=== PATIENT | male | born 1975 | race Caucasian/White ===

== ENCOUNTER → 2020-06-15 | Day surgery (SDC) | payer OTHER ==
[~2020-06-15] MED LIST: ONDANSETRON ODT8 MG PO; PERCOCET 5-3251 EACH PO; PRILOSEC20 MG PO
[2020-06-15 08:52] LABS: HCT 45.7 % (42.0-52.0); HGB 16.1 g/dl (13.2-18.0); MCH 31.4 pg (25.0-31.0); MCHC 35.2 g/dL (32.0-36.0); MCV 89.1 fL (78.0-100.0); MPV 9.6 fL (6.0-9.5); RBC 5.13 M/uL (4.70-6.00); RDW 12.2 % (11.5-14.0); WBC 7.1 K/uL (4.0-10.5)
[2020-06-15 09:04] LABS: ALBUMIN 4.1 g/dL (3.4-5.0); BILIRUBIN - TOTAL 0.7 mg/dL (0.2-1.0); BUN/CREAT RATIO (CALC) 11.9 RATIO; CREATININE 1.01 mg/dL (0.67-1.17); POTASSIUM 3.6 mmol/L (3.5-5.1); TOTAL PROTEIN 7.1 g/dL (6.4-8.2)
== END | disposition home or self-care (01) ==
LOC: FAS 08:20
PROVIDERS: Surgery
DX: K21.9 Gastro-esophageal reflux disease without esophagitis (principal); K29.60 Other gastritis without bleeding; K92.1 Melena; M19.90 Unspecified osteoarthritis, unspecified site; G47.30 Sleep apnea, unspecified; F17.210 Nicotine dependence, cigarettes, uncomplicated; Z20.822 Contact with and (suspected) exposure to COVID-19; Z88.6 Allergy status to analgesic agent; Z88.8 Allergy status to other drugs, medicaments and biological substances; Z98.890 Other specified postprocedural states; Z83.71 Family history of colonic polyps; Z82.49 Family history of ischemic heart disease and other diseases of the circulatory system
CPT/HCPCS: 36415; 80053; J2704

== ENCOUNTER → 2020-08-07 | Day surgery (SDC) | payer OTHER ==
[~2020-08-07] VITALS: Ht 188 cm; Wt 111.1 kg
[2020-08-07 07:54] LABS: HCT 45.7 % (42.0-52.0); HGB 16.3 g/dl (13.2-18.0); MCH 31.4 pg (25.0-31.0); MCHC 35.7 g/dL (32.0-36.0); MCV 88.1 fL (78.0-100.0); MPV 9.2 fL (6.0-9.5); RBC 5.19 M/uL (4.70-6.00); RDW 12.2 % (11.5-14.0); WBC 7.1 K/uL (4.0-10.5)
[2020-08-07 08:07] LABS: BILIRUBIN - TOTAL 0.6 mg/dL (0.2-1.0); BUN/CREAT RATIO (CALC) 12.8 RATIO; CREATININE 1.17 mg/dL (0.67-1.17); POTASSIUM 4.4 mmol/L (3.5-5.1)
== END | disposition home or self-care (01) ==
LOC: FAS 06:58
PROVIDERS: Surgery
DX: K81.1 Chronic cholecystitis (principal); K21.9 Gastro-esophageal reflux disease without esophagitis; G47.30 Sleep apnea, unspecified; Z88.6 Allergy status to analgesic agent; E78.5 Hyperlipidemia, unspecified; F17.210 Nicotine dependence, cigarettes, uncomplicated; K62.5 Hemorrhage of anus and rectum; M19.90 Unspecified osteoarthritis, unspecified site; Z88.5 Allergy status to narcotic agent; Z98.52 Vasectomy status
CPT/HCPCS: 36415; 74300; 80053; C1758; J2250; J2405; J2704; J2710; J3010; J7120; Q9967